=== PATIENT | male | born 1990 | race Caucasian/White ===

== ENCOUNTER 2022-01-14 23:01 | Emergency (ER) | payer BC ==
[2022-01-15] MEDS ORDERED: IBUPROFEN600 MG PO (02:14)
== END 2022-01-15 02:20 | disposition home or self-care (01) ==
LOC: ER1 23:01
DX: S61.412A Laceration without foreign body of left hand, initial encounter (principal); W22.8XXA Striking against or struck by other objects, initial encounter; Y99.0 Civilian activity done for income or pay
CPT/HCPCS: 12001; 73130; 99283